=== PATIENT | female | born 1970 | race Caucasian/White ===

== ENCOUNTER 2023-12-17 10:57 | Emergency (ER) | payer OTHER ==
--- NOTE | 2023-12-17 11:57 | ED ---
Abdominal Pain HPI - General Chief Complaint: Abdominal Pain Stated Complaint: Abd pain, bleeding, constipation Time Seen by Provider: 12/17/23 11:56 Source: patient, RN notes reviewed Mode of arrival: ambulatory Limitations: no limitations - History of Present Illness Initial Comments: 53-year-old female presenting with abdominal pain x 2 months. States the pain is located in the right lower pelvis and is intermittent and sharp in quality. States that she was diagnosed with a lesion in her ovary 3.5 years ago and was told she needed to have a hysterectomy, however she has not followed up due to insurance issues. States over the past few months she has had increasing suprapubic pain and pressure worse on the right side as well as dysuria and intermittent vaginal spotting worsening over the past week. Patient states periods have been irregular for the last year which she attributes to menopause. Tolerating orals well. Denies fever, chills, vomiting. Denies hematuria, flank pain, chest pain, shortness of breath. - Related Data Allergies Allergy/AdvReac Type Severity Reaction Status Date / Time No Known Allergies Allergy Verified 12/17/23 11:01 Review of Systems ROS Statement: Those systems with pertinent positive or pertinent negative responses have been documented in the HPI. ROS Other: All systems not noted in ROS Statement are negative. Past Medical History Past Medical History: No Reported History History of Any Multi-Drug Resistant Organisms: None Reported Past Surgical History: No Surgical Hx Reported Past Psychological History: No Psychological Hx Reported Smoking Status: Current every day smoker Past Alcohol Use History: None Reported Past Drug Use History: None Reported General Exam - General Exam Comments Initial Comments: Visual Physical Exam Vital signs reviewed General: Well-appearing, nontoxic, no acute distress. Head: Normocephalic, atraumatic Eyes: PERRLA, EOMI ENT: Airway patent Chest: Nonlabored breathing Skin: No visual rash, normal skin tone Neuro: Alert and oriented 3 Musculoskeletal: No gross abnormalities Limitations: no limitations General appearance: alert, in no apparent distress Head exam: Present: atraumatic, normocephalic, normal inspection Eye exam: Present: normal appearance. Absent: scleral icterus, conjunctival injection, periorbital swelling Respiratory exam: Present: normal lung sounds bilaterally. Absent: respiratory distress, wheezes, rales, rhonchi, stridor Cardiovascular Exam: Present: regular rate, normal rhythm, normal heart sounds. Absent: systolic murmur, diastolic murmur, rubs, gallop, clicks GI/Abdominal exam: Present: soft, tenderness (Mild right-sided pelvic tenderness), normal bowel sounds. Absent: distended, guarding, rebound, rigid Extremities exam: Present: normal inspection, full ROM, normal capillary refill. Absent: tenderness, pedal edema, joint swelling, calf tenderness Back exam: Absent: CVA tenderness (R), CVA tenderness (L) Neurological exam: Present: alert, oriented X3 Psychiatric exam: Present: normal affect, normal mood Skin exam: Present: warm, dry, intact, normal color. Absent: rash Course Vital Signs 12/17/23 10:58 Temperature 97.3 F L Pulse Rate 94 Respiratory 20 Rate Blood Pressure 129/87 O2 Sat by Pulse 97 Oximetry Medical Decision Making - Medical Decision Making I completed the quick note portion of this chart signed Mary Kate Tidwell PA-C Was pt. sent in by a medical professional or institution (, [facility], OWNER OPERATOR [employer] TRUCK [employer]IVER, urgent c are, hospital, or usp...) When possible be specific @ -No Did you speak to anyone other than the patient for history (EMS, parent, family, police, friend...)? What history was obtained from this source @ -No Did you review nursing and triage notes (agree or disagree)? Why? @ -I reviewed and agree with nursing and triage notes Were old charts reviewed (outside hosp., previous admission, EMS record, old EKG, old radiological studies, urgent care reports/EKG's, usp records)? Report findings @ -No old charts were reviewed Differential Diagnosis (chest pain, altered mental status, abdominal pain women, abdominal pain men, vaginal bleeding, weakness, fever, dyspnea, syncope, h eadache, dizziness, GI bleed, back pain, seizure, CVA, palpatations, mental health, musculoskeletal)? @ -Differential Abdominal Pain Women: Appendicitis, Cholecystitis, diverticulosis, ischemic bowel, pancreatitis, hepatitis, UTI, gastroenteritis, AAA, incarcerated hernia, bowel obstruction, constipation, inflammatory bowel, hepatitis, peptic ulcer disease, splenic infarction, perforated viscus, vulvitis, ovarian torsion, PID, kidney stone, placenta abruption, this is not meant to be an all-inclusive list EKG interpreted by me (3pts min.). @ -None X-rays interpreted by me (1pt min.). @ -None done CT interpreted by me (1pt min.). @ -None done U/S interpreted by me (1pt. min.). @ -Ultrasound revealed thickened endometrium with questionable mass/polyp within uterus with mild fluid, neoplasm not excluded, ovaries not evaluated due to patient did not tolerate exam well What testing was considered but not performed or refused? (CT, X-rays, U/S, labs)? Why? @ -None What meds were considered but not given or refused? Why? @ -None Did you discuss the management of the patient with other professionals (professionals i.e. , PA, OWNER OPERATOR T[employer] TRUCK DRIVER, lab, RT, psych nurse, social media intern, senior group manager, teacher, transit authority police officer, caseworker)? Give summary @ -No Was smoking cessation discussed for >3mins.? @ -No Was critical care preformed (if so, how long)? @ -No Were there social determinants of health that impacted care today? How? (Homelessness, low income, unemployed, alcoholism, drug addiction, transport ation, low edu. Level, literacy, decrease access to med. care, senior care, rehab)? @ -No Was there de-escalation of care discussed even if they declined (Discuss DNR or withdrawal of care, Hospice)? DNR status @ -No What co-morbidities impacted this encounter? (DM, HTN, Smoking, COPD, CAD, Cancer, CVA, ARF, Chemo, Hep., AIDS, mental health diagnosis, sleep apnea, morbid obesity)? @ -None Was patient admitted / discharged? Hospital course, mention meds given and route, prescriptions, significant lab abnormalities, going to OR and other pertinent info. @ -Patient was discharged. This is a 53-year-old female presenting for pelvic pain x 2 months that is worsening. Patient has had associated vaginal spotting worsening over the past week. Vital signs are within normal limits. No acute distress. Patient has mild tenderness to palpation on right pelvic area. Laboratory studies including CBC, CMP, lipase, lactic acid unremarkable besides mildly elevated lactic acid at 2.2. Hemoglobin stable at 12.6. Urine is unremarkable. Ultrasound of pelvis reveals endometrium thickened and questionable mass/polyp within the uterine cavity with mild fluid, neoplasm not excluded. Ovaries not evaluated due to patient did not tolerate exam well, however there is low suspicion for ovarian torsion at this time due to gradual symptom onset over several months, patient is in no acute distress and resting comfortably. Findings discussed with patient. Discussed patient must follow-up with [facility] regarding endometrial thickening as neoplasm is not excluded at this time. Return precautions discussed and patient is agreeable to plan. Case was discussed with my ED attending Dr. Palomares. Patient discharged in stable condition. Undiagnosed new problem with uncertain prognosis? @ -No Drug Therapy requiring intensive monitoring for toxicity (Heparin, Nitro, Insulin, Cardizem)? @ -No Were any procedures done? @ -No Diagnosis/symptom? @ -Endometrial thickening, pelvic pain Acute, or Chronic, or Acute on Chronic? @ -Acute Uncomplicated (without systemic symptoms) or Complicated (systemic symptoms)? @ -Uncomplicated Side effects of treatment? @ -No Exacerbation, Progression, or Severe Exacerbation? @ -No Poses a threat to life or bodily function? How? (Chest pain, USA, ID, pneumonia, PE, COPD, DKA, ARF, appy, cholecystitis, CVA, Diverticulitis, Homicidal, Suicidal, threat to staff... and all critical care pts) @ -Not at this time - Lab Data Result diagrams: 12/17/23 12:39 12/17/23 12:39 Lab Results 12/17/23 12/17/23 12/17/23 Range/Units 12:39 12:39 12:39 WBC 7.7 (3.8-10.6) k/uL RBC 4.13 (3.80-5.40) m/uL Hgb 12.6 (11.4-16.0) gm/dL Hct 38.6 (34.0-46.0) % MCV 93.4 (80.0-100.0) fL MCH 30.6 (25.0-35.0) pg MCHC 32.7 (31.0-37.0) g/dL RDW 12.4 (11.5-15.5) % Plt Count 266 (150-450) k/uL MPV 7.8 Neutrophils % 62 % Lymphocytes % 29 % Monocytes % 4 % Eosinophils % 3 % Basophils % 0 % Neutrophils # 4.8 (1.3-7.7) k/uL Lymphocytes # 2.3 (1.0-4.8) k/uL Monocytes # 0.3 (0-1.0) k/uL Eosinophils # 0.2 (0-0.7) k/uL Basophils # 0.0 (0-0.2) k/uL Sodium 140 (137-145) mmol/L Potassium 4.1 (3.5-5.1) mmol/L Chloride 108 H (98-107) mmol/L Carbon Dioxide 23 (22-30) mmol/L Anion Gap 9 mmol/L BUN 31 H (7-17) mg/dL Creatinine 0.71 (0.52-1.04) mg/dL Est GFR (CKD-EPI)AfAm >90 (>60 ml/min/1.73 sqM) Est GFR (CKD-EPI)NonAf >90 (>60 ml/min/1.73 sqM) Glucose 147 H (74-99) mg/dL Plasma Lactic Acid Clifford (0.7-2.0) mmol/L Calcium 9.3 (8.4-10.2) mg/dL Total Bilirubin 0.3 (0.2-1.3) mg/dL AST 21 (14-36) U/L ALT 19 (4-34) U/L Alkaline Phosphatase 70 (38-126) U/L Total Protein 6.3 (6.3-8.2) g/dL Albumin 3.9 (3.5-5.0) g/dL Lipase 251 (23-300) U/L Urine Color Colorless Urine Appearance Clear (Clear) Urine pH 5.5 (5.0-8.0) Ur Specific [place] 1.028 (1.001-1.035) Urine Protein Negative (Negative) Urine Glucose (UA) Negative (Negative) Urine Ketones Negative (Negative) Urine Blood Negative (Negative) Urine Nitrite Negative (Negative) Urine Bilirubin Negative (Negative) Urine Urobilinogen <2.0 (<2.0) mg/dL Ur Leukocyte Esterase Negative (Negative) 12/17/23 Range/Units 12:39 WBC (3.8-10.6) k/uL RBC (3.80-5.40) m/uL Hgb (11.4-16.0) gm/dL Hct (34.0-46.0) % MCV (80.0-100.0) fL MCH (25.0-35.0) pg MCHC (31.0-37.0) g/dL RDW (11.5-15.5) % Plt Count (150-450) k/uL MPV Neutrophils % % Lymphocytes % % Monocytes % % Eosinophils % % Basophils % % Neutrophils # (1.3-7.7) k/uL Lymphocytes # (1.0-4.8) k/uL Monocytes # (0-1.0) k/uL Eosinophils # (0-0.7) k/uL Basophils # (0-0.2) k/uL Sodium (137-145) mmol/L Potassium (3.5-5.1) mmol/L Chloride (98-107) mmol/L Carbon Dioxide (22-30) mmol/L Anion Gap mmol/L BUN (7-17) mg/dL Creatinine (0.52-1.04) mg/dL Est GFR (CKD-EPI)AfAm (>60 ml/min/1.73 sqM) Est GFR (CKD-EPI)NonAf (>60 ml/min/1.73 sqM) Glucose (74-99) mg/dL Plasma Lactic Acid Clifford 2.2 H* (0.7-2.0) mmol/L Calcium (8.4-10.2) mg/dL Total Bilirubin (0.2-1.3) mg/dL AST (14-36) U/L ALT (4-34) U/L Alkaline Phosphatase (38-126) U/L Total Protein (6.3-8.2) g/dL Albumin (3.5-5.0) g/dL Lipase (23-300) U/L Urine Color Urine Appearance (Clear) Urine pH (5.0-8.0) Ur Specific [place] (1.001-1.035) Urine Protein (Negative) Urine Glucose (UA) (Negative) Urine Ketones (Negative) Urine Blood (Negative) Urine Nitrite (Negative) Urine Bilirubin (Negative) Urine Urobilinogen (<2.0) mg/dL Ur Leukocyte Esterase (Negative) Disposition Clinical Impression: Pelvic pain, Thickened endometrium Disposition: HOME SELF-CARE Condition: Stable Additional Instructions: Please follow-up with [facility] within the next week for further testing. Please return to the Emergency Department if symptoms worsen or any other concerns. Is patient prescribed a controlled substance at d/c from ED?: No Referrals: None,Stated [Primary Care Provider] - 1-2 days Time of Disposition: 14:17
[2023-12-17 12:49] LABS: Basophils % (A) 0 %; Eosinophils # (A) 0.2 k/uL (0-0.7); Eosinophils % (A) 3 %; HCT 38.6 % (34.0-46.0); HGB 12.6 gm/dL (11.4-16.0); Lymphocytes # (A) 2.3 k/uL (1.0-4.8); Lymphocytes % (A) 29 %; MCH 30.6 pg (25.0-35.0); MCHC 32.7 g/dL (31.0-37.0); MCV 93.4 fL (80.0-100.0); Mean Platelet Volume 7.8; Monocytes # (A) 0.3 k/uL (0-1.0); Monocytes % (A) 4 %; Neutrophils # (A) 4.8 k/uL (1.3-7.7); Neutrophils % (A) 62 %; Platelet Count 266 k/uL (150-450); RBC 4.13 m/uL (3.80-5.40); RDW 12.4 % (11.5-15.5); WBC 7.7 k/uL (3.8-10.6)
[2023-12-17 12:59] LABS: Appearance,Urine Clear (Clear); Bilirubin,Urine Negative (Negative); Blood,Urine Negative (Negative); Color,Urine Colorless; Glucose,Urine (UA) Negative (Negative); Ketones,Urine Negative (Negative); Leukocyte Esterase,Urine Negative (Negative); Nitrite,Urine Negative (Negative); PH, Urine 5.5 (5.0-8.0); Protein,Urine Negative (Negative); Specific Gravity,Urine 1.028 (1.001-1.035); Urobilinogen,Urine <2.0 mg/dL (<2.0)
[2023-12-17 13:13] LABS: ALT 19 U/L (4-34); AST 21 U/L (14-36); African American GFR (CKD) >90 (>60 ml/min/1.73 sqM); Albumin 3.9 g/dL (3.5-5.0); Alkaline Phosphatase 70 U/L (38-126); Anion Gap 9 mmol/L; Blood Urea Nitrogen 31 mg/dL (7-17); Calcium 9.3 mg/dL (8.4-10.2); Carbon Dioxide 23 mmol/L (22-30); Chloride 108 mmol/L (98-107); Glucose 147 mg/dL (74-99); Lipase 251 U/L (23-300); Non-African American GFR(CKD) >90 (>60 ml/min/1.73 sqM); Potassium 4.1 mmol/L (3.5-5.1); Sodium 140 mmol/L (137-145); Total Bilirubin 0.3 mg/dL (0.2-1.3); Total Protein 6.3 g/dL (6.3-8.2)
--- NOTE | 2023-12-17 13:46 | US ---
EXAMINATION TYPE: US pelvis complete transvag DATE OF EXAM: 12/17/2023 COMPARISON: NONE CLINICAL INDICATION: Female, 53 years old with history of pelvic pain; Hx Drug use and abnormal pap s walter / cervical biopsies. Pelvic pain, and painful intercourse x few years, pain has been worsening over last month. AUB - patient states postmenopausal but has been spotting with heavy bleeding starti ng this week TECHNIQUE: Transabdominal sonographic images of the pelvis were acquired. Transvaginal sonographic images were medically necessary to better assess the following anatomy: Ovaries and endometrium Date of LMP: unknown EXAM MEASUREMENTS: Uterus: 5.9 x 4.5 x 4.8 cm Endometrial Stripe: 1.6 cm Right Ovary: 3.2 x 1.8 x 2.4 cm Left Ovary: 2.8 x 1.6 x 2.2 cm 1. Uterus: Anteverted calcifications throughout 2. Endometrium: ? Polyp and fluid within 3. Right Ovary: limited visualization 4. Left Ovary: limited visualization 5. Bilateral Adnexa: WNL 6. Posterior cul-de-sac: WNL Patient did not tolerate TV exam well - unable to assess ovaries for spectral flow - minimal to no co nish seen. IMPRESSION: 1. For a postmenopausal woman, the endometrium is thickened and there is a questionable mass/polyp wi thin the uterine cavity with mild fluid in the intrauterine cavity. Further evaluation of the endomet rium is recommended particularly given the history of vaginal bleeding. Endometrial neoplasm is not e xcluded. 2. Ovaries not evaluated as described above. 3. No fluid in the cul-de-sac.
[2023-12-17 14:33] VITALS: BP 110/75; PULSE 77; RESP 18; TEMP 98.2
== END 2023-12-17 14:33 | disposition home or self-care (01) ==
LOC: EC 10:57
CPT/HCPCS: 36415; 76830; 76856; 80053; 81003; 83605; 83690; 85025; 99284

== ENCOUNTER → 2024-06-11 | Outpatient (CLI) | payer OTHER ==
--- NOTE | 2024-06-11 19:14 | MR ---
EXAMINATION TYPE: MR pelvis wo/w con DATE OF EXAM: 06/11/2024 7:02 PM COMPARISON: 05/30/2024. 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 IV Contrast: 7 mL Gadobutrol FINDINGS: Reproductive: Vagina: Unremarkable. Uterus: The uterus measures 56 x 36 x 56 mm. Endometrium is within normal limits for thickness. The j unctional zone is within normal limits for thickness. Heterogenous appearance of the cervix 6 extends into the vagina smith. Wall thickening best appreciated on axial imaging series 1001 image 17 postco ntrast. Measuring up to 4 mm. Desmoplastic reaction to the surrounding tissue is seen with spiculated appearance also present. Surrounding the cervix and vagina. Findings are thought to involve the vagi na surrounding the cervix circumferentially. Series 1001 image 16r. There is a few mesorectal fascia lymph node measuring up to 5 mm series 1001 image 19. Ovaries: Ovaries are posteriorly located in close proximity to the Bladder: Unremarkable. Bowel: Unremarkable as visualized. Peritoneum: No free fluid or adenopathy. Lymph nodes: No evidence of adenopathy. Vasculature: Unremarkable. Musculoskeletal: Bone marrow signal is within normal signal intensity. Abdominal wall/soft tissues: Unremarkable. IMPRESSION: 1. Abnormal appearance of the cervix with spiculated desmoplastic reaction extending into the surrou nding fat concerning for microscopic invasion of the surrounding fat. Additionally there is evidence of circumferential vagina wall thickening which is also suspicious for involvement of the vagina. 2. 1 right mesorectal fascia lymph node measuring up to 5 mm which is indeterminate. [facility], , 06/11/2024 7:11 PM
== END | disposition home or self-care (01) ==
LOC: RADMRIMAIN 17:54
PROVIDERS: ATTEND Radiology Radiation Oncology
DX: C53.9 Malignant neoplasm of cervix uteri, unspecified (principal); N89.8 Other specified noninflammatory disorders of vagina
CPT/HCPCS: 72197; A9585

== ENCOUNTER → 2024-06-21 | Outpatient (CLI) | payer OTHER ==
--- NOTE | 2024-06-23 18:54 | PE ---
EXAMINATION TYPE: PET CT fusion skull to thigh DATE OF EXAM: 06/21/2024 CLINICAL INDICATION:Female, 53 years old with history of C53.8 uterine ca; TECHNIQUE: Following the intravenous administration of 11.89 mCi of F-18 FDG, whole body images are performed from the skull base to the Mid thigh. Images are reviewed on the computer in the coronal, axial, and sagittal planes. Reconstructed rotating images are created on independent workstation an d reviewed on the computer. A non-contrast CT is performed in conjunction with the PET scan. Glucos e level 101 mg/dL CT DLP: 422 mGycm, Automated exposure control for dose reduction was used. COMPARISON: CT 05/30/2024, PET/CT None, MRI: 06/11/2024 FINDINGS: Mediastinal SUV mean is 2.0. Hepatic parenchyma SUV mean is 2.7. SKULL BASE AND NECK: No suspicious radiotracer activity. CHEST, MEDIASTINUM, AND HILAR REGION: No suspicious radiotracer activity. ABDOMEN AND PELVIS: * Redemonstration of abnormal uptake somewhat diffusely throughout the uterus and involving the cerv ix and upper vagina near the cervix. Max uptake at the level near the cervix trying to exclude the an terior peritoneal the bladder 14.8 and uterine fundus max SUV 10.8. * Left pelvic sidewall lymph node measuring 14 mm in short axis max SUV 17.8 * Right mesorectal fascia lymph node does not have abnormal uptake. MUSCULOSKELETAL STRUCTURES: No suspicious radiotracer activity. OTHER CT: Enlarged left thyroid gland extending down into the superior mediastinum. Mild coronary art addi calcifications. Few scattered colonic diverticula. IMPRESSION: Evidence of active neoplasm involving the uterus cervix and upper vagina with at least one metastatic lymph node in the left pelvis with increased metabolic activity. [facility], , 06/23/2024 6:51 PM
== END | disposition home or self-care (01) ==
LOC: RADPETMAIN 06:05
PROVIDERS: ATTEND Radiology Radiation Oncology
DX: C53.8 Malignant neoplasm of overlapping sites of cervix uteri (principal); R59.0 Localized enlarged lymph nodes
CPT/HCPCS: 78815; A9552

== ENCOUNTER → 2024-08-09 | Outpatient (CLI) | payer OTHER ==
--- NOTE | 2024-08-10 13:41 | MR ---
EXAMINATION TYPE: MR pelvis wo/w con DATE OF EXAM: 08/09/2024 11:01 AM COMPARISON: 06/21/2024, 06/11/2024, 05/30/2024, 12/17/2023. CLINICAL INDICATION: Female, 54 years old with history of C57.8,C53.9; PHH, Cervical cancer. F/U com parison to prior MRI post radiation/chemo treatment. TECHNIQUE: Triplane multisequence imaging was performed of the pelvis. IV Contrast: 7 mL Gadobutrol FINDINGS: Reproductive: Vagina: Unremarkable. Uterus: The uterus is anteverted in position. Uterus measures 5.9 x 4.1 x 5.1 cm. The endometrium and junctional zone are within normal limits. The cervix demonstrates some hazy spiculated enhancement o f the posterior vagina wall near the cervix. Series 04/11/2000 image 27. Wall thickening up to 9 mm pre viously 7 mm on the right and with spiculations now extending up to 12 mm on the right previously up to 9 mm. Ovaries: Right ovarian cyst measuring 35 x 26 x 25 mm with intermediate T2 signal lower T1 s ignal. This producing measured 15 mm. The left ovary measures 2.1 x 1.7 x 1.9 cm. Bladder: Unremarkable. Bowel: Unremarkable as visualized. Peritoneum: No free fluid or adenopathy. Lymph nodes: Left pelvic sidewall enlarged lymph node measuring 15 mm in short axis which is thought to be similar given differences in slice selection compared to 06/11/2024. Vasculature: Unremarkable. Musculoskeletal: Bone marrow signal is within normal signal intensity. Abdominal wall/soft tissues: Unremarkable. IMPRESSION: 1. Mild progression of disease with increased enhancement extending away from the posterior vagina w all near the cervix . 2. Left pelvic sidewall lymph node is not significantly changed from 06/11/2024. This may be fractiona lly larger compared to 05/30/2024. 3. Right ovarian hemorrhagic/proteinaceous cyst versus endometrioma measuring up to 35 mm. Increase in size from 06/11/2024 [facility], , 08/10/2024 1:39 PM
== END | disposition home or self-care (01) ==
LOC: RADMRIMAIN 09:46
PROVIDERS: ATTEND Radiology Radiation Oncology
DX: C53.9 Malignant neoplasm of cervix uteri, unspecified (principal); C57.8 Malignant neoplasm of overlapping sites of female genital organs; C77.5 Secondary and unspecified malignant neoplasm of intrapelvic lymph nodes
CPT/HCPCS: 72197; A9585

== ENCOUNTER → 2024-08-14 | Outpatient (CLI) | payer OTHER ==
[2024-08-14 19:21] LABS: Appearance,Urine Turbid (Clear); Bilirubin,Urine Negative (Negative); Blood,Urine Small (Negative); Color,Urine Yellow (Yellow); Ketones,Urine Negative (Negative); Nitrite,Urine Positive (Negative); Urobilinogen,Urine 0.2 E.U./DL
[2024-08-14 20:01] LABS: Bacteria,Urine 3+ (None Seen)
== END | disposition home or self-care (01) ==
LOC: LABWHC1 11:06
PROVIDERS: ATTEND Radiology Radiation Oncology
DX: C57.8 Malignant neoplasm of overlapping sites of female genital organs (principal); C53.9 Malignant neoplasm of cervix uteri, unspecified; C77.5 Secondary and unspecified malignant neoplasm of intrapelvic lymph nodes
CPT/HCPCS: 81001; 87086